=== PATIENT | female | born 1995 | race African-American/Black ===

== ENCOUNTER 2019-02-15 12:56 | Emergency (ER) | payer MEDICAID, OTHER ==
[~2019-02-15] VITALS: Ht 160 cm; Wt 80.0 kg
[2019-02-15 16:02] VITALS: BP 138/99
== END 2019-02-15 21:37 | disposition left against medical advice (07) ==
LOC: ER 12:56
DX: R06.02 Shortness of breath (principal); Z53.21 Procedure and treatment not carried out due to patient leaving prior to being seen by health care provider